=== PATIENT | male | born 1985 | race American Indian/Alaskan Native ===

== ENCOUNTER 2016-11-08 05:04 | Inpatient (IN) | payer OTHER ==
[2016-11-08 05:26] LABS: Basophils % (Auto) 0.9 % (0.0-1.8); Eosinophils % (Auto) 6.4 % (0.0-4.3); Hemoglobin 15.4 gm/dl (11.8-15.2); Mean Corpuscular HGB Conc 34 % (32-34); Mean Corpuscular Hemoglobin 31 pg (28-32); Mean Corpuscular Volume 90 fl (84-94); Platelet Count 184 K/mm3 (140-440); Red Blood Count 5.02 M/mm3 (3.65-5.03); Red Cell Distribution Width 13.9 % (13.2-15.2); White Blood Count 8.9 K/mm3 (4.5-11.0)
[2016-11-08 05:48] LABS: Alanine Aminotransferase 20 units/L (7-56); Albumin 4.6 g/dL (3.9-5); Albumin/Globulin Ratio 1.4 %; Alkaline Phosphatase 75 units/L (35-129); Anion Gap 22 mmol/L; Bilirubin,Total 0.4 mg/dL (0.1-1.2); Blood Urea Nitrogen 14 mg/dL (9-20); Calcium 9.8 mg/dL (8.4-10.2); Carbon Dioxide 23 mmol/L (22-30); Chloride 97.8 mmol/L (98-107); Glucose 116 mg/dL (75-100); Lipase 142 units/L (13-60); Potassium 4.2 mmol/L (3.6-5.0); Sodium 139 mmol/L (137-145); Total Protein 7.8 g/dL (6.3-8.2)
[2016-11-08 06:23] LABS: Mucus,Urine 2+ /HPF
[2016-11-08 06:25] LABS: Bilirubin,Urine NEG (Negative); Blood,Urine NEG (Negative); Ketones,Urine TR mg/dL (Negative); Leukocyte Esterase,Urine TR (Negative); Nitrite,Urine NEG (Negative); Urobilinogen,Urine < 2.0 mg/dL (<2.0)
--- NOTE | 2016-11-08 08:01 | Emergency Department Report ---
ED Abdominal Pain HPI - General Chief Complaint: Abdominal Pain Stated Complaint: VOMITING/STOMACH PAIN Time Seen by Provider: 11/08/16 07:56 Source: patient Mode of arrival: Ambulatory Limitations: No Limitations - History of Present Illness Initial Comments: Patient has a history of pancreatitis. He drank alcohol last night. Subsequent to that he developed epigastric pain and vomiting. There was no signs of hematemesis. No melena. Minimal diarrhea. MD Complaint: abdominal pain -: hour(s) Location: epigastric Radiation: none Severity: moderate Quality: aching Consistency: intermittent Improves With: nothing Worsens With: nothing Context: other (alcohol use) Associated Symptoms: nausea, vomiting, diarrhea. denies: fever - Related Data Home Medications Medication Instructions Recorded Confirmed Last Taken No Known Home Medications [No 11/08/16 11/08/16 Unknown Reported Home Medications] Allergies Allergy/AdvReac Type Severity Reaction Status Date / Time apple Allergy Rash Verified 06/08/14 08:42 ED Review of Systems ROS: Stated complaint: VOMITING/STOMACH PAIN Other details as noted in HPI Constitutional: denies: chills, fever Eyes: denies: eye pain, eye discharge, vision change ENT: denies: ear pain, throat pain Respiratory: denies: cough, shortness of breath, wheezing Cardiovascular: denies: chest pain, palpitations Endocrine: no symptoms reported Gastrointestinal: as per HPI, abdominal pain, nausea, vomiting. denies: diarrhea Genitourinary: denies: urgency, dysuria Musculoskeletal: denies: back pain, joint swelling, arthralgia Skin: denies: rash, lesions Neurological: denies: headache, weakness, paresthesias Psychiatric: denies: anxiety, depression Hematological/Lymphatic: denies: easy bleeding, easy bruising ED Past Medical Hx - Past Medical History Previous Medical History?: Yes Hx Congestive Heart Failure: No Hx Diabetes: No Hx Asthma: No Hx COPD: No Additional medical history: pancreatitis - Surgical History Past Surgical History?: No - Social History Smoking Status: Current Every Day Smoker Substance Use Type: Alcohol - Medications Home Medications: Home Medications Medication Instructions Recorded Confirmed Last Taken Type No Known Home Medications [No 11/08/16 11/08/16 Unknown History Reported Home Medications] ED Physical Exam - General Limitations: No Limitations ED Course Vital Signs 11/08/16 11/08/16 11/08/16 05:11 07:56 08:00 Temperature 97.7 F Pulse Rate 69 64 70 Respiratory 18 20 20 Rate Blood Pressure 144/97 139/80 O2 Sat by Pulse 100 95 Oximetry 11/08/16 11/08/16 11/08/16 08:07 08:11 08:21 Temperature Pulse Rate 50 L Respiratory 16 20 Rate Blood Pressure 139/80 139/80 O2 Sat by Pulse 100 100 100 Oximetry 11/08/16 11/08/16 11/08/16 08:30 08:41 08:51 Temperature Pulse Rate 53 L 54 L 51 L Respiratory 16 22 11 L Rate Blood Pressure 149/81 149/81 149/81 O2 Sat by Pulse 100 100 96 Oximetry 11/08/16 11/08/16 11/08/16 09:01 09:11 09:21 Temperature Pulse Rate 56 L 57 L 51 L Respiratory 12 12 23 Rate Blood Pressure 127/62 127/62 127/62 O2 Sat by Pulse 100 100 100 Oximetry 11/08/16 11/08/16 11/08/16 09:31 09:41 09:51 Temperature Pulse Rate 72 56 L 65 Respiratory 17 18 19 Rate Blood Pressure 127/60 127/60 127/60 O2 Sat by Pulse 100 100 100 Oximetry - Reevaluation(s) Reevaluation #1: Persistent vomiting and complaint of epigastric pain. The patient will be admitted by the hospitalist service further care and evaluation. 11/08/16 10:29 ED Medical Decision Making - Lab Data Result diagrams: 11/08/16 05:17 11/08/16 05:17 Laboratory Results - last 24 hr 11/08/16 11/08/16 11/08/16 05:17 05:17 Unknown WBC 8.9 RBC 5.02 Hgb 15.4 H Hct 45.0 MCV 90 MCH 31 MCHC 34 RDW 13.9 Plt Count 184 Lymph % (Auto) 41.8 H [place] % (Auto) 6.8 Eos % (Auto) 6.4 H Baso % (Auto) 0.9 Lymph # 3.7 [place] # 0.6 Eos # 0.6 H Baso # 0.1 Seg Neutrophils % 44.1 Seg Neutrophils # 3.9 Sodium 139 Potassium 4.2 Carbon Dioxide 23 BUN 14 Creatinine 1.0 Estimated GFR > 60 BUN/Creatinine Ratio 14.00 Glucose 116 H Calcium 9.8 Total Bilirubin 0.4 AST 26 ALT 20 Alkaline Phosphatase 75 Total Protein 7.8 Albumin 4.6 Albumin/Globulin Ratio 1.4 Lipase 142 H Urine Color Yellow Urine Turbidity Clear Urine pH 7.0 Ur Specific [place] 1.033 H Urine Protein 100 mg/dl Urine Glucose (UA) Neg Urine Ketones Tr Urine Blood Neg Urine Nitrite Neg Ur Reducing Substances Not Reportable Urine Bilirubin Neg Urine Ictotest Not Reportable Urine Urobilinogen < 2.0 Ur Leukocyte Esterase Tr Urine WBC (Auto) 1.0 Urine RBC (Auto) 3.0 U Epithel Cells (Auto) < 1.0 Urine Mucus 2+ Critical care attestation.: If time is entered above; I have spent that time in minutes in the direct care of this critically ill patient, excluding procedure time. ED Disposition Clinical Impression: Acute alcoholic pancreatitis Qualifiers: Acute pancreatitis complication: unspecified Qualified Code(s): K85.20 - Alcohol induced acute pancreatitis without necrosis or infection Gastritis Qualifiers: Gastritis type: unspecified gastritis Chronicity: acute Gastritis bleeding: without bleeding Qualified Code(s): K29.00 - Acute gastritis without bleeding Disposition: OP ADMITTED IP TO THIS HOSP Is pt being admited?: Yes Does the pt Need Aspirin: No (aspirin contraindicated) Condition: Stable Referrals: PRIMARY CARE, [Primary Care Provider] - 3-5 Days Time of Disposition: 10:30
[2016-11-08] MEDS ORDERED: ZOFRAN IV ONE ×2 (08:07→10:24)
[2016-11-08] MEDS ORDERED: MORPHINE IV ONE ×2 (08:07→10:23)
[2016-11-08] MEDS ORDERED: ZOSYN/NS 3.375GM/50ML 50 ML IV ONE (08:08)
[2016-11-08] MEDS ORDERED: NACL 0.9% 1000 ML 1,000 ML IV ONE ×2 (08:09→08:13)
[2016-11-08] MEDS ORDERED: PROTONIX IV ONE (08:13)
[2016-11-08] MEDS ORDERED: MILK OF MAGNESIA PO PRN (10:35)
[2016-11-08] MEDS ORDERED: ZOFRAN IV PRN (10:35)
[2016-11-08] MEDS ORDERED: MORPHINE IV PRN (10:35)
[2016-11-08] MEDS ORDERED: TYLENOL PO PRN (10:35)
[2016-11-08] MEDS ORDERED: DULCOLAX PR PRN (10:35)
--- NOTE | 2016-11-08 10:42 | History and Physical Report ---
History of Present Illness Date of examination: 11/08/16 History of present illness: Patient has a history of pancreatitis. He drank alcohol last night. Subsequent to that he developed epigastric pain and vomiting. There was no signs of hematemesis. No melena. Minimal diarrhea. Medications and Allergies Allergies Allergy/AdvReac Type Severity Reaction Status Date / Time apple Allergy Rash Verified 06/08/14 08:42 Home Medications Medication Instructions Recorded Confirmed Last Taken Type No Known Home Medications [No 11/08/16 11/08/16 Unknown History Reported Home Medications] Review of Systems Gastrointestinal: abdominal pain, nausea, vomiting Exam - Constitutional Vitals: Temp Pulse Resp BP Pulse Ox 97.7 F 65 19 127/60 100 11/08/16 05:11 11/08/16 09:51 11/08/16 09:51 11/08/16 09:51 11/08/16 09:51 General appearance: Present: mild distress - EENT Eyes: Present: PERRL, EOM intact ENT: hearing intact, clear oral mucosa, dentition normal - Neck Neck: Present: supple, normal ROM - Respiratory Respiratory effort: normal Respiratory: bilateral: CTA - Cardiovascular Rhythm: regular Heart Sounds: Present: S1 & S2 - Extremities Extremities: no ischemia, No edema - Abdominal General gastrointestinal: Present: soft, tender, non-distended, normal bowel sounds Localized gastrointestinal: tender: diffuse - Musculoskeletal Musculoskeletal: strength equal bilaterally - Psychiatric Psychiatric: appropriate mood/affect, intact judgment & insight - Neurologic Neurologic: CNII-XII intact, moves all extremities Results - Labs CBC & Chem 7: 11/08/16 05:17 11/08/16 05:17 Labs: Laboratory Last Values WBC 8.9 K/mm3 (4.5-11.0) 11/08/16 05:17 RBC 5.02 M/mm3 (3.65-5.03) 11/08/16 05:17 Hgb 15.4 gm/dl (11.8-15.2) H 11/08/16 05:17 Hct 45.0 % (35.5-45.6) 11/08/16 05:17 MCV 90 fl (84-94) 11/08/16 05:17 MCH 31 pg (28-32) 11/08/16 05:17 MCHC 34 % (32-34) 11/08/16 05:17 RDW 13.9 % (13.2-15.2) 11/08/16 05:17 Plt Count 184 K/mm3 (140-440) 11/08/16 05:17 Lymph % (Auto) 41.8 % (13.4-35.0) H 11/08/16 05:17 [place] % (Auto) 6.8 % (0.0-7.3) 11/08/16 05:17 Eos % (Auto) 6.4 % (0.0-4.3) H 11/08/16 05:17 Baso % (Auto) 0.9 % (0.0-1.8) 11/08/16 05:17 Lymph # 3.7 K/mm3 (1.2-5.4) 11/08/16 05:17 [place] # 0.6 K/mm3 (0.0-0.8) 11/08/16 05:17 Eos # 0.6 K/mm3 (0.0-0.4) H 11/08/16 05:17 Baso # 0.1 K/mm3 (0.0-0.1) 11/08/16 05:17 Seg Neutrophils % 44.1 % (40.0-70.0) 11/08/16 05:17 Seg Neutrophils # 3.9 K/mm3 (1.8-7.7) 11/08/16 05:17 Sodium 139 mmol/L (137-145) 11/08/16 05:17 Potassium 4.2 mmol/L (3.6-5.0) 11/08/16 05:17 Carbon Dioxide 23 mmol/L (22-30) 11/08/16 05:17 BUN 14 mg/dL (9-20) 11/08/16 05:17 Creatinine 1.0 mg/dL (0.8-1.5) 11/08/16 05:17 Estimated GFR > 60 ml/min 11/08/16 05:17 BUN/Creatinine Ratio 14.00 % 11/08/16 05:17 Glucose 116 mg/dL (75-100) H 11/08/16 05:17 Calcium 9.8 mg/dL (8.4-10.2) 11/08/16 05:17 Total Bilirubin 0.4 mg/dL (0.1-1.2) 11/08/16 05:17 AST 26 units/L (5-40) 11/08/16 05:17 ALT 20 units/L (7-56) 11/08/16 05:17 Alkaline Phosphatase 75 units/L (35-129) 11/08/16 05:17 Total Protein 7.8 g/dL (6.3-8.2) 11/08/16 05:17 Albumin 4.6 g/dL (3.9-5) 11/08/16 05:17 Albumin/Globulin Ratio 1.4 % 11/08/16 05:17 Lipase 142 units/L (13-60) H 11/08/16 05:17 Urine Color Yellow (Yellow) 11/08/16 Unknown Urine Turbidity Clear (Clear) 11/08/16 Unknown Urine pH 7.0 (5.0-7.0) 11/08/16 Unknown Ur Specific [place] 1.033 (1.003-1.030) H 11/08/16 Unknown Urine Protein 100 mg/dl mg/dL (Negative) 11/08/16 Unknown Urine Glucose (UA) Neg mg/dL (Negative) 11/08/16 Unknown Urine Ketones Tr mg/dL (Negative) 11/08/16 Unknown Urine Blood Neg (Negative) 11/08/16 Unknown Urine Nitrite Neg (Negative) 11/08/16 Unknown Ur Reducing Substances Not Reportable 11/08/16 Unknown Urine Bilirubin Neg (Negative) 11/08/16 Unknown Urine Ictotest Not Reportable 11/08/16 Unknown Urine Urobilinogen < 2.0 mg/dL (<2.0) 11/08/16 Unknown Ur Leukocyte Esterase Tr (Negative) 11/08/16 Unknown Urine WBC (Auto) 1.0 /HPF (0.0-6.0) 11/08/16 Unknown Urine RBC (Auto) 3.0 /HPF (0.0-6.0) 11/08/16 Unknown U Epithel Cells (Auto) < 1.0 /HPF (0-13.0) 11/08/16 Unknown Urine Mucus 2+ /HPF 11/08/16 Unknown Assessment and Plan - Patient Problems (1) Acute alcoholic pancreatitis Current Visit: Yes Status: Acute Qualifiers: Acute pancreatitis complication: unspecified Qualified Code(s): K85.20 - Alcohol induced acute pancreatitis without necrosis or infection Plan to address problem: We'll admit to medical bed. We'll give IV Zofran. IV morphine. Follow amylase lipase. Will get GI consult. IV fluid hydration
[2016-11-08] MEDS ORDERED: LOVENOX SUB-Q SCH (11:00)
[2016-11-08] MEDS ORDERED: D5NS 1,000 ML IV SCH (11:00)
[2016-11-08] MEDS ORDERED: REGLAN IV PRN (11:25)
[2016-11-08 12:26] VITALS: BP 135/84
--- NOTE | 2016-11-08 19:12 | Consultation ---
REFERRING PHYSICIAN: Naresh Ocasio MD. INDICATION: Abdominal pain. HISTORY OF PRESENT ILLNESS: The patient is a 31-year-old black male with a reported history of pancreatitis three years ago secondary to alcohol now with abdominal pain. The patient reports last night he had a couple of drinks and started having epigastric pain with nausea and vomiting. He reports no lower GI symptoms including diarrhea, constipation, or rectal bleeding. Denies any weight loss. The patient subsequently came to Emergency Room and was evaluated and admitted and GI consulted. PAST MEDICAL HISTORY: Pancreatitis. MEDICATIONS: See chart. ALLERGIES: No known drug allergies. SOCIAL HISTORY: Social alcohol, denies tobacco. FAMILY HISTORY: Negative for colon cancer. REVIEW OF SYSTEMS: GENERAL: Reports mild weakness. HEENT: No visual complaints or tinnitus. PULMONARY: No shortness of breath. No cough. No chest pain. GASTROINTESTINAL: Reports abdominal pain. All points of 13-point review of systems otherwise negative. PHYSICAL EXAMINATION: VITAL SIGNS: Temperature of 98.7, pulse 94, respirations 20, blood pressure 135/84. GENERAL: Fairly nourished black male in no acute distress. HEENT: Pupils equal, round, reactive to light and accommodation. Extraocular muscles intact. PULMONARY: Clear to auscultation bilaterally. CARDIOVASCULAR: Regular rhythm. Normal S1, S2. ABDOMEN: Positive bowel sounds, soft. SKIN: No obvious rashes. LABORATORY DATA: Pertinent for white count of 8.9, hemoglobin and hematocrit of 15 and 45, platelet count of 184. Chem-7 within normal limits. Lipase of 142. ASSESSMENT AND PLAN: A 31-year-old black male with history of pancreatitis secondary to alcohol one about 3 years ago now after having a drink or 2 with abdominal pain. The patient has slightly increased lipase. His exam shows mild pain. It is unclear as to whether or not this is pancreatitis versus peptic ulcer disease versus gastritis versus other. PLAN: 1. CT scan of pelvis, a contrast. 2. N.p.o. with IV fluids and pain medications. 3. Antiemetics per primary team. 4. Consider EGD based on progress. 5. We will follow. JOB# [id number] CAB/NTS
== END 2016-11-08 12:30 | disposition left against medical advice (07) | DRG 440 ==
LOC: ED 05:04 → 3A 11:47
PROVIDERS: ADMIT Internal Medicine; ATTEND Internal Medicine
DX: K85.20 Alcohol induced acute pancreatitis without necrosis or infection (principal); F17.210 Nicotine dependence, cigarettes, uncomplicated; K29.00 Acute gastritis without bleeding; Z53.21 Procedure and treatment not carried out due to patient leaving prior to being seen by health care provider
CPT/HCPCS: 36415; 80053; 81001; 83690; 85025; 96361; 96372; 96374; 96375; 96376; C9113; J2270; J2405; J2765; J7030